=== PATIENT | male | born 1950 | race Hispanic/Latino ===

== ENCOUNTER → 2018-12-09 | Outpatient (CLI) | payer OTHER, MEDICARE ==
[~2018-12-09] MED LIST: AMLODIPINE BESYL5 MG PO; ASPIRIN325 MG PO; ATORVASTATIN CA20 MG PO; CARVEDILOL3.125 MG PO; FUROSEMIDE40 MG PO; HUMALOG SQ; HUMALOG100 UNIT/1 SQ; LANTUS 3ML100 UNITS/ SQ; LEVEMIR SQ; LISINOPRIL-HCT1 EAC2; LOVAZA1 GM PO; METFORMIN HCL1000 MG PO; TRULICITY SQ; VYTORIN
--- NOTE | 2018-12-09 14:46 | Diagnostic Imaging Report ---
TECHNIQUE: Magnetic resonance imaging of the LEFT KNEE was performed WITHOUT injected contrast. HISTORY: Left knee pain COMPARISON: None available. FINDINGS: LIGAMENTS AND TENDONS: ACL: Intact PCL: Intact Collateral ligaments: Defect within the medial collateral ligament axial image 20 with surrounding edema. (Additionally this could be remote injury with overlying edema due to the meniscal tear) Iliotibial band: Unremarkable Popliteal tendon: Intact Extensor mechanism: Fragmentation of the tibial tuberosity with patellar tendinosis JOINT: Menisci: Medial: Complex tearing of the body and posterior horn with dominant radial component of the body Lateral: Intact Articular Cartilage: Medial Compartment: Diffuse partial-thickness cartilage loss Lateral Compartment: Diffuse partial-thickness cartilage loss Patellofemoral Compartment: Diffuse high-grade cartilage loss with areas of the facet. Joint Fluid: Moderate joint effusion. BONE: No focal or infiltrative bone marrow replacing abnormality. No acute fracture. SOFT TISSUES: Otherwise, unremarkable. IMPRESSION: Medial meniscus complex tear with dominant radial component to the body. Tricompartment cartilage loss, patellofemoral compartment predominant. Medial collateral ligament possible partial tear as above. Signed by: Dr. Errol Dutta M.D. on 12/09/2018 2:43 PM
== END ==
LOC: MRI 13:07
PROVIDERS: ATTEND Specialist
DX: S83.222A Peripheral tear of medial meniscus, current injury, left knee, initial encounter (principal)

== ENCOUNTER → 2018-12-14 | Day surgery (SDC) | payer OTHER, MEDICARE ==
[2018-12-12 14:03] LABS: BASOPHILS # (AUTO) 0.1 (0.0-0.1); BASOPHILS % 0.6 % (0.0-1.0); EOSINOPHILS # (AUTO) 0.2 (0.0-0.4); EOSINOPHILS % 2.2 % (0.0-6.0); HEMATOCRIT 40.6 % (38.2-49.6); LYMPHOCYTES # (AUTO) 5.7 (1.0-3.2); LYMPHOCYTES % 53.2 % (18.0-39.1); MEAN CORPUSCULAR HEMOGLOBIN 28.7 pg (28-32); MEAN CORPUSCULAR VOLUME 89.6 fL (81-99); MONOCYTES # (AUTO) 0.7 (0.2-0.8); MONOCYTES % 6.9 % (4.4-11.3); NEUTROPHILS % 36.9 % (38.7-80.0); PLATELET COUNT 193 x10e3/uL (140-360); RED BLOOD COUNT 4.53 x10e6/uL (4.3-5.7); RED CELL DISTRIBUTION WIDTH 13.6 % (11.7-14.4)
--- NOTE | 2018-12-12 14:29 | Diagnostic Imaging Report ---
EXAMINATION: CHEST 2 VIEWS INDICATION: Pre-operative COMPARISON: None FINDINGS: LINES/TUBES:None LUNGS:The lungs are well inflated. No focal consolidation or pulmonary edema. PLEURA:No pleural effusion or pneumothorax. MEDIASTINUM:The cardiomediastinal silhouette is enlarged. Postoperative changes of prior CABG. Atherosclerotic calcifications of the thoracic aorta. BONES/SOFT TISSUES:No acute osseous injury. Sternotomy wires in place with fractures of the first and sixth sternotomy wires. ABDOMEN:No free air under the diaphragm. IMPRESSION: No focal pneumonia or pulmonary edema. Cardiomegaly and postoperative findings of prior CABG. Signed by: Akash Atwood MD on 12/12/2018 2:26 PM
[2018-12-12 14:31] LABS: ANION GAP 13.2 mmol/L (8-16); CALCIUM 9.5 mg/dL (8.4-10.2); CREATININE, SERUM 2.82 mg/dL (0.72-1.25); POTASSIUM 4.2 mmol/L (3.5-5.1)
[~2018-12-14] MED LIST changes: +ACETAMINOPHEN 1000 MG/100 ML 100 ML IV ONE; +BUPIVACAINE 0.5%/EPI 30 ML SDV INJ ONE; +CEFAZOLIN SOD 1 GM/NS 50ML 100 ML IV ONE; +DEXAMETHASONE SOD PHOS INJ 4 MG/ML VIAL ONE; +EPHEDRINE SULFATE INJ 50 MG/10 ML SYR ONE; +FENTANYL CITRATE/PF 100MCG/2 ML INJ ONE; +LIDOCAINE HCL 2% LOCAL INJ 5 ML SDV VIAL INJ ONE; +ONDANSETRON HCL INJ 2MG/ML 2ML 2 MG/ML VIAL ONE; +PROPOFOL IV EMULSION 10 MG/ML 20 ML VIAL ONE; +SEVOFLURANE INHAL SOLN 250 ML PEN BTL ONE
--- OUTSIDE RECORDS SUMMARY | 2018-12-14 08:31 | XMS REPORT | Summary of Care ---
Author Author [facility] Organization [facility] Address Unknown Phone Unavailable Encounter HQ Rocío(CARLOS) [id number] Date(s): 04/13/18 - 04/13/18 [facility] [address] [place] [address]- [phone] Encounter Diagnosis Epistaxis (Final) - 04/18/18 Type 2 diabetes mellitus without complications (Final) - Atherosclerotic heart disease of ute coronary artery without angina pectoris (Final) - half-way (current) use of anticoagulants (Final) - Presence of aortocoronary bypass graft (Final) - Personal history of nicotine dependence (Final) - Epistaxis (Discharge Diagnosis) - 04/13/18 Discharge Disposition: Home or Self Care Attending Physician: Lulu Castro DO Vital Signs 1 2 3 Most recent to oldest [Reference Range]: 177.8 cm (04/13/18 2:43 AM) Height 98.4 DegF (04/13/18 2:43 AM) Temperature Oral [96.4-99.1 DegF] 142/81 mmHg *HI* (04/13/18 5:32 AM) 138/85 mmHg (04/13/18 4:15 AM) 157/77 mmHg *HI* (04/13/18 2:43 AM) Blood Pressure [90-140/60-90 mmHg] 18 BRMIN (04/13/18 5:32 AM) 18 BRMIN (04/13/18 4:15 AM) 20 BRMIN (04/13/18 2:43 AM) Respiratory Rate [14-20 BRMIN] 77 bpm (04/13/18 2:43 AM) Peripheral Pulse Rate [60-100 bpm] 115.909 kg (04/13/18 2:43 AM) Weight 36.67 m2 (04/13/18 2:43 AM) Body Mass Index Problem List Condition Effective Dates Status Health Status Informant CAD (coronary artery Active disease)(Confirmed) Diabetes Active mellitus(Confirmed) Hypertension(Confirm Active ed) Obesity(Confirmed) Active Allergies, Adverse Reactions, Alerts No Known Medication Allergies Medications Afrin 0.05% nasal spray 2 spray, Route: NASAL, ONCE, Drug form: DEEDEE, Start date: 04/13/18 3:54:00 TRAILER CHIEF, Stop date: 04/13/18 3:54:00 TRAILER CHIEF Notes: (Same as: Afrin) Start Date: 04/13/18 Stop Date: 04/13/18 Status: Completed Results Most recent to 1 oldest [Reference Range]: Neutrophils # 4.8 K/CMM [1.5-8.1 K/CMM] (04/13/18 4:36 AM) Lymphocytes # 5.8 K/CMM [1.0-5.5 K/CMM] *HI* (04/13/18 4:36 AM) Monocytes # [0.0-0.8 0.8 K/CMM K/CMM] (04/13/18 4:36 AM) Eosinophils # 0.3 K/CMM [0.0-0.5 K/CMM] (04/13/18 4:36 AM) Basophils # [0.0-0.2 0.1 K/CMM K/CMM] (04/13/18 4:36 AM) Basophils [0.0-1.0 0.5 % %] (04/13/18 4:36 AM) Eosinophils [0.0-4.0 2.6 % %] (04/13/18 4:36 AM) Hct [42.0-54.0 %] 36.2 % *LOW* (04/13/18 4:36 AM) Hgb [14.0-18.0 g/dL] 12.0 g/dL *LOW* (04/13/18 4:36 AM) INR [0.85-1.17] 0.99 (04/13/18 4:36 AM) Lymphocytes 49.0 % [20.0-40.0 %] *HI* (04/13/18 4:36 AM) MCH [27.0-31.0 pg] 29.7 pg (04/13/18 4:36 AM) MCHC [32.0-36.0 33.2 g/dL g/dL] (04/13/18 4:36 AM) MCV [80.0-94.0 fL] 89.2 fL (04/13/18 4:36 AM) Monocytes [2.0-12.0 7.2 % %] (04/13/18 4:36 AM) MPV [7.4-10.4 fL] 10.0 fL (04/13/18 4:36 AM) Platelet [133-450 184 K/CMM K/CMM] (04/13/18 4:36 AM) Segs [45.0-75.0 %] 40.7 % *LOW* (04/13/18 4:36 AM) PT [12.0-14.7 12.9 seconds seconds] (04/13/18 4:36 AM) RBC [4.70-6.10 4.06 M/CMM M/CMM] *LOW* (04/13/18 4:36 AM) RDW [11.5-14.5 %] 13.7 % (04/13/18 4:36 AM) WBC [3.7-10.4 K/CMM] 11.8 K/CMM *HI* (04/13/18 4:36 AM) Immunizations No data available for this section Procedures Procedure Date Related Diagnosis Body Site Status CABG x 4 - Coronary artery bypass grafts x 4 03/2016 Completed Arthroscopy of knee Completed Cholecystectomy Completed Epidural steroid injection Completed Tonsillectomy Completed Social History Social History Type Response Substance Abuse Use: None. Alcohol Current, Frequency: 1-2 times per year. Smoking Status Former smoker; Exposure to Tobacco Smoke None; Cigarette Smoking Last 365 Days No; Reg Smoking Cessation Counseling No entered on: 05/13/18 Assessment and Plan No data available for this section
--- OUTSIDE RECORDS SUMMARY | 2018-12-14 08:31 | XMS REPORT | Summary of Care ---
Author Organization Unknown Address Unknown Phone Unavailable Encounter Dates Location Diagnoses Discharge Providers Disposition 06/08/2013 [facility] Outpatient Imaging Home Salvador Cagle 06/08/[address] [place] [place] [address] Reason for Visit 669.46 - JOINT PAIN-L/LE Problem List No data available for this section Allergies, Adverse Reactions, Alerts No data available for this section Medications No data available for this section Medications Administered During Your Visit No data available for this section Immunizations No data available for this section
--- OUTSIDE RECORDS SUMMARY | 2018-12-14 08:31 | XMS REPORT | Summary of Care ---
Author Organization Unknown Address Unknown Phone Unavailable Encounter HQ Encntr_alias(CARLOS) [id number] Date(s): 07/16/14 - 07/16/14 [facility] Outpatient Imaging - [address] [phone] Discharge Disposition: Home Physician Attending: Salvatore Inman MD Vital Signs No data available for this section Problem List No data available for this section Allergies, Adverse Reactions, Alerts No data available for this section Medications No data available for this section Results No data available for this section Immunizations No data available for this section Procedures No data available for this section Social History No data available for this section Assessment and Plan No data available for this section
--- OUTSIDE RECORDS SUMMARY | 2018-12-14 08:31 | XMS REPORT | Clinical Summary ---
Author Author [facility] Address Unknown Phone Unavailable Care Team Providers Care Health Care Consultant Name Role Phone Salvatore Inman MD PCP Allergies Comments Active Allergy Reactions Severity Noted Date Zolpidem 03/30/2016 Medications End Date Status Medication Sig Dispensed Refills Start Date Active amLODIPine (NORVASC) 10 Take 5 mg by 0 mg tablet mouth daily. Active aspirin (ECOTRIN) 81 MG Take 81 mg by 0 enteric coated tablet mouth daily. Active insulin GLARGINE (LANTUS) Inject 38 0 100 unit/mL injection Units under (vial) the skin nightly. Active insulin ASPART (NovoLOG) Inject 12 0 100 unit/mL injection Units under the skin 3 (three) times a day before meals. Active omega-3 acid ethyl esters Take 2 g by 0 (LOVAZA) 1 gram capsule mouth 2 (two) times a day. Active Problems Problem Noted Date Acute on chronic congestive heart failure 06/27/2017 Essential hypertension 06/27/2017 Type 2 diabetes mellitus 06/27/2017 Metabolic alkalosis 04/24/2016 Hypercarbia 04/24/2016 Ischemic cardiomyopathy 04/24/2016 Acute deep vein thrombosis (DVT) of popliteal vein of left lower extremity 04/24/2016 Persistent atrial fibrillation 04/20/2016 Acute on chronic renal failure 04/09/2016 Anemia due to blood loss 04/08/2016 S/P CABG x 4 (HYATT TO LAD, SVG TO OM, DIAGONAL AND RCA) 04/07/2016 Acute respiratory insufficiency 04/07/2016 Obstructive sleep apnea 04/07/2016 Obesity (BMI 35.0-39.9 without comorbidity) 04/07/2016 Congestive heart failure 03/30/2016 Immunizations Name Administration Dates Next Due Pneumococcal Conjugate 04/01/2016 13-Valent Social History Date Tobacco Use Types Packs/Day Years Used Quit: 1999 Former Smoker Smokeless Tobacco: Never Used Sex Assigned at Date Recorded Not on file Industry Job Start Date Occupation Not on file Not on file Not on file Travel End Travel History Travel Start No recent travel history available. Last Filed Vital Signs Not on file Plan of Treatment Health Maintenance Due Date Last Done Comments DIABETIC RETINAL EYE EXAM 1948 DIABETIC FOOT EXAM 1958 COLONOSCOPY SCREENING 1998 SHINGLES VACCINES (#1) 1998 65+ PNEUMOCOCCAL VACCINE 04/01/2017 04/01/2016 (2 of 2 - PPSV23) INFLUENZA VACCINE 10/20/2018 Implants Device Identifier Shelf Expiration Date Model / Serial / Lot Implanted Type Area Manufactur er [id number] / / Lead Pace Glenn Mycrdl Unipol Tmpry Cardiovasc N/A: N/A [employer] Streamline - [id number] ular [place] - Implanted: 04/07/2016 at [facility] (Quantity not on file) SRGRY 6500F / / Lead Pace Glenn Mycrdl Unipol Tmpry Cardiovasc N/A: N/A [employer] Streamline - [id number] ular [place] - Implanted: 04/07/2016 at [facility] (Quantity not on file) SRGRY S 1100 [id number] / / Chamber Sgl Layla Dry Suct 1wy Vlv Surgical N/A: N/A TELEFLEX Adlt Pedi - [id number] Implants; MEDICAL Implanted: 04/07/2016 at [facility] (Quantity not on file) Extenders; Surgical Wires S 1100 [id number] / / Chamber Sgl Layla Dry Suct 1wy Vlv Surgical N/A: N/A TELEFLEX Adlt Pedi - [id number] Implants; MEDICAL Implanted: 04/07/2016 at [facility] (Quantity not on file) Extenders; Surgical Wires 10/16/2020 [id number] / / [id number] [place] Perp Vasclr Ptfe 1.2x10cm Vascular N/A: N/A BARD 1.65mm - [id number] Graft PERIPHERAL Implanted: 04/07/2016 at [facility] (Quantity not on file) 12/17/2020 [id number] / / [id number] [place] Perp Vasclr Ptfe 1.2x10cm Vascular N/A: N/A BARD 1.65mm - [id number] Graft PERIPHERAL Implanted: 04/07/2016 at [facility] (Quantity not on file) Results Not on fileafter 12/13/2017 Insurance Type Payer Benefit Subscriber ID Effective Phone Address Plan / Dates Group PPO AETNA AETNA PPO xxxxxxxxxx [id number] OPEN resent CHOICE Medicare MEDICARE MEDICARE xxxxxxxxxx [id number] LERNER, PART A AND resent [place] B Advance Directives For more information, please contact: [phone] 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
--- OUTSIDE RECORDS SUMMARY | 2018-12-14 08:31 | XMS REPORT | Summary of Care ---
Author Author [facility] Outpatient Imaging [facility] Outpatient Imaging [facility] Address Unknown Phone Unavailable Encounter HQ Encntr_alias(FIN) [id number] Date(s): 05/10/18 - 05/10/18 [facility] Outpatient Imaging [facility] [address] [facility], [address] [place] [address] [phone] Discharge Disposition: Home or Self Care Attending Physician: Leland Patino MD Referring Physician: Leland Patino MD Vital Signs No data available for this section Problem List No data available for this section Allergies, Adverse Reactions, Alerts Substance Reaction Severity Status NKDA Active Medications No data available for this section Results No data available for this section Immunizations No data available for this section Procedures No data available for this section Social History Social History Type Response Smoking Status Former smoker; Type: Cigarettes; Exposure to Tobacco Smoke None; Cigarette Smoking Last 365 Days No; Reg Smoking Cessation Counseling No entered on: 04/13/18 Assessment and Plan No data available for this section
--- OUTSIDE RECORDS SUMMARY | 2018-12-14 08:31 | XMS REPORT | Summary of Care ---
Author Author [facility] Outpatient Imaging [facility] Outpatient [facility] Address Unknown Phone Unavailable Encounter HQ Encntr_alias(FIN) [id number] Date(s): 02/18/16 - 02/18/16 [facility] Outpatient Imaging [address] [address] [phone] Discharge Disposition: Home or Self Care Attending Physician: Salvatore Inman MD Vital Signs No data [...]
--- OUTSIDE RECORDS SUMMARY | 2018-12-14 08:31 | XMS REPORT | Summary of Care ---
Author Author [facility] Organization [facility] Address Unknown Phone Unavailable Encounter HIEU Alford(CARLOS) [id number] Date(s): 05/16/18 - 05/16/18 [facility] [address] [place] [address]- Discharge Disposition: Home or Self Care Attending Physician: Leland Patino MD Referring Physician: Leland Patino MD Vital Signs 1 2 3 Most recent to oldest [Reference Range]: 177.8 cm (05/13/18 9:46 AM) Height 98.0 DegF (05/13/18 9:57 AM) Temperature Oral [96.4-99.1 DegF] 133/78 mmHg (05/16/18 11:15 AM) 139/64 mmHg (05/16/18 11:00 AM) 133/69 mmHg (05/16/18 10:45 AM) Blood Pressure [90-140/60-90 mmHg] 16 BRMIN (05/16/18 10:45 AM) 17 BRMIN (05/16/18 10:30 AM) 14 BRMIN (05/16/18 10:15 AM) Respiratory Rate [14-20 BRMIN] 79 bpm (05/16/18 8:30 AM) 64 bpm (05/13/18 9:57 AM) Peripheral Pulse Rate [60-100 bpm] 115.909 kg (05/13/18 9:46 AM) Weight 36.67 m2 (05/13/18 9:46 AM) Body Mass Index Problem List Condition Effective Dates Status Health Status Informant CAD (coronary artery Active disease)(Confirmed) Diabetes Active mellitus(Confirmed) Hypertension(Confirm Active ed) Obesity(Confirmed) Active Allergies, Adverse Reactions, Alerts Substance Reaction Severity Status NKDA Active Medications acetaminophen (ANES) Route: IV, Drug form: INJ, ONCE, Stop date: 05/16/18 10:04:00 SUPPORT MANAGER Start Date: 05/16/18 Stop Date: 05/16/18 Status: Completed amLODIPine 5 mg oral tablet 5 mg=1 tab, PO, Daily, 0 Refill(s) Start Date: 05/13/18 Status: Ordered ANES acetaminophen 1,000 mg, Route: PO, Drug form: TAB, ONCE, Dosing Weight 115.909, kg, PRN Pain S core 1-3, Start date: 05/16/18 10:08:00 SUPPORT MANAGER Start Date: 05/16/18 Stop Date: 05/16/18 Status: Discontinued ANES albuterol 0.083% inhalation solution 2.49 mg, Route: NEB, Q20Min, Dosing Weight 115.909, kg, PRN Wheezing, Priority: STAT, Start date: 05/16/18 10:08:00 SUPPORT MANAGER, Duration: 30 day, Stop date: 06/15/18 1 1:07:00 CDT Start Date: 05/16/18 Stop Date: 05/16/18 Status: Discontinued ANES dexamethasone 4 mg, Route: IVP, ONCE, Dosing Weight 115.909, kg, PRN Nausea & Vomiting, Start date: 05/16/18 10:08:00 SUPPORT MANAGER Start Date: 05/16/18 Stop Date: 05/16/18 Status: Discontinued ANES diphenhydrAMINE 12.5 mg, Route: IVP, Drug form: INJ, Q6H, Dosing Weight 115.909, kg, PRN Itching , Start date: 05/16/18 10:08:00 SUPPORT MANAGER, Duration: 30 day, Stop date: 06/15/18 10:07 :00 CDT Start Date: 05/16/18 Stop Date: 05/16/18 Status: Discontinued ANES fentaNYL 25 microgram, Route: IVP, Q5Min, Dosing Weight 115.909, kg, PRN, Priority: Melanie thomas, Start date: 05/16/18 10:08:00 SUPPORT MANAGER, Duration: 4 doses or times, Stop date: Eve ross # of times, Pain Score 4-10 Start Date: 05/16/18 Stop Date: 05/16/18 Status: Discontinued ANES flumazenil 0.2 mg, Route: IVP, PRN, Dosing Weight 115.909, kg, PRN Benzodiazepine Reversal, Initial dose, Start date: 05/16/18 10:08:00 SUPPORT MANAGER, Duration: 30 day, Stop date: 0 06/15/18 11:07:00 CDT Start Date: 05/16/18 Stop Date: 05/16/18 Status: Discontinued ANES hydrALAZINE 5 mg, Route: IVP, Q20Min, Dosing Weight 115.909, kg, PRN Elevated BP, Start date : 05/16/18 10:08:00 SUPPORT MANAGER, Duration: 2 doses or times, Stop date: Limited # of hermes es Start Date: 05/16/18 Stop Date: 05/16/18 Status: Discontinued ANES HYDROmorphone 0.5 mg, Route: IVP, Q5Min, Dosing Weight 115.909, kg, PRN, Start date: 05/16/18 10:08:00 SUPPORT MANAGER, Duration: 4 doses or times, Stop date: Limited # of times, Pain Sc ore 4-10 Start Date: 05/16/18 Stop Date: 05/16/18 Status: Discontinued ANES labetalol 5 mg, Route: IVP, Q5Min, Dosing Weight 115.909, kg, PRN Elevated BP, Start date: 05/16/18 10:08:00 SUPPORT MANAGER, Duration: 5 doses or times, Stop date: Limited # of times Start Date: 05/16/18 Stop Date: 05/16/18 Status: Discontinued ANES metoprolol 1 mg, Route: IVP, Q5Min, Dosing Weight 115.909, kg, PRN Other -See Comment, Star t date: 05/16/18 10:08:00 SUPPORT MANAGER, Duration: 5 doses or times, Stop date: Limited # of times Start Date: 05/16/18 Stop Date: 05/16/18 Status: Discontinued ANES naloxone 0.4 mg, Route: IVP, Q2MIN, Dosing Weight 115.909, kg, PRN Narcotic Reversal, Sta rt date: 05/16/18 10:08:00 SUPPORT MANAGER, Duration: 8 doses or times, Stop date: Limited # of times Start Date: 05/16/18 Stop Date: 05/16/18 Status: Discontinued ANES ondansetron 4 mg, Route: IVP, ONCE, Dosing Weight 115.909, kg, PRN Nausea & Vomiting, Start date: 05/16/18 10:08:00 SUPPORT MANAGER Start Date: 05/16/18 Stop Date: 05/16/18 Status: Discontinued ANES promethazine 6.25 mg, Route: IVPB, ONCE, Dosing Weight 115.909, kg, PRN Nausea & Vomiting, Start date: 05/16/18 10:08:00 SUPPORT MANAGER Start Date: 05/16/18 Stop Date: 05/16/18 Status: Discontinued ANES scopolamine 1.5 mg transdermal film 1 patch, Route: TOP, Drug Form: ERFILM, Dosing Weight 115.909, kg, ONCE, Apply b ehind ear. Avoid use in elderly., Start date: 05/16/18 10:08:00 SUPPORT MANAGER, Stop date: 05/16/18 10:08:00 SUPPORT MANAGER Notes: Change patch every 72 hours (Same as: Transderm-Scop) Start Date: 05/16/18 Stop Date: 05/16/18 Status: Ordered aspirin 81 mg tablet, enteric coated 81 mg=1 tab, PO, Daily, # 90 tab, 3 Refill(s) Start Date: 05/13/18 Status: Ordered atorvastatin PO, Daily, 0 Refill(s) Start Date: 05/13/18 Status: Ordered Basaglar KwikPen SUB-Q, 0 Refill(s) Start Date: 05/13/18 Status: Ordered carvedilol 3.125 mg oral tablet 3.125 mg=1 tab, PO, BID, 0 Refill(s) Start Date: 05/13/18 Status: Ordered ceFAZolin (ANES) Route: IV, Drug form: INJ, ONCE, Stop date: 05/16/18 10:03:00 SUPPORT MANAGER Start Date: 05/16/18 Stop Date: 05/16/18 Status: Completed dexamethasone (ANES) Route: IV, Drug form: INJ, ONCE, Stop date: 05/16/18 10:04:00 SUPPORT MANAGER Start Date: 05/16/18 Stop Date: 05/16/18 Status: Completed ePHEDrine (ANES) Route: IV, Drug form: INJ, ONCE, Stop date: 05/16/18 10:03:00 SUPPORT MANAGER Start Date: 05/16/18 Stop Date: 05/16/18 Status: Completed esmolol (ANES) Route: IV, Drug form: INJ, ONCE, Stop date: 05/16/18 10:04:00 SUPPORT MANAGER Start Date: 05/16/18 Stop Date: 05/16/18 Status: Completed fentaNYL (ANES) Route: IV, Drug form: INJ, ONCE, Stop date: 05/16/18 10:03:00 SUPPORT MANAGER Start Date: 05/16/18 Stop Date: 05/16/18 Status: Completed glycopyrrolate (ANES) Route: IV, Drug form: INJ, ONCE, Stop date: 05/16/18 10:04:00 SUPPORT MANAGER Start Date: 05/16/18 Stop Date: 05/16/18 Status: Completed Humalog 18 unit, SUB-Q, 0 Refill(s) Start Date: 05/13/18 Status: Ordered Lactated Ringers Injection IV (ANES) 1000 mL Route: IV, Total Volume: 1,000, Start date: 05/16/18 9:07:00 SUPPORT MANAGER, Stop date: 10:07:00 SUPPORT MANAGER Start Date: 05/16/18 Stop Date: 05/16/18 Status: Completed Lactated Ringers Injection IV 1000 mL 1,000 mL, Rate: 125 ml/hr, Infuse over: 8 hr, Route: IV, Dosing Weight 115.909 k g, Total Volume: 1,000, Start date: 05/16/18 10:08:00 SUPPORT MANAGER, Duration: 30 day, Sto p date: 06/15/18 10:07:00 CDT, 2.42, m2 Start Date: 05/16/18 Stop Date: 05/16/18 Status: Discontinued Lactated Ringers Injection IV 1000 mL 1,000 mL, Rate: 25 ml/hr, Infuse over: 40 hr, Route: IV, Dosing Weight 115.909 k g, Total Volume: 1,000, Start date: 05/16/18 9:16:00 SUPPORT MANAGER, Duration: 30 day, Stop date: 06/15/18 9:15:00 CDT, 2.42, m2 Start Date: 05/16/18 Stop Date: 05/16/18 Status: Discontinued Lasix 40 mg oral tablet 40 mg=1 tab, PO, Daily, 0 Refill(s) Start Date: 05/13/18 Status: Ordered lidocaine (ANES) Route: IV, Drug form: INJ, ONCE, Stop date: 05/16/18 10:03:00 SUPPORT MANAGER Start Date: 05/16/18 Stop Date: 05/16/18 Status: Completed neostigmine (ANES) Route: IV, Drug form: INJ, ONCE, Stop date: 05/16/18 10:04:00 SUPPORT MANAGER Start Date: 05/16/18 Stop Date: 05/16/18 Status: Completed [place]-3 oral capsule 0 Refill(s) Start Date: 05/13/18 Status: Ordered ondansetron (ANES) Route: IV, Drug form: INJ, ONCE, Stop date: 05/16/18 10:04:00 SUPPORT MANAGER Start Date: 05/16/18 Stop Date: 05/16/18 Status: Completed oxyCODONE 5 mg oral tablet 5 mg, 1 tab, Route: PO, Q6H, Dosing Weight 115.909, kg, Start date: 05/16/18 10: 56:00 SUPPORT MANAGER, Duration: 30 day, Stop date: 06/15/18 6:00:00 CDT Start Date: 05/16/18 Stop Date: 05/16/18 Status: Discontinued phenylephrine (ANES) Route: IV, Drug form: INJ, ONCE, Stop date: 05/16/18 10:03:00 SUPPORT MANAGER Start Date: 05/16/18 Stop Date: 05/16/18 Status: Completed propofol (ANES) Route: IV, Drug form: INJ, ONCE, Stop date: 05/16/18 10:03:00 SUPPORT MANAGER Start Date: 05/16/18 Stop Date: 05/16/18 Status: Completed rocuronium (ANES) Route: IV, Drug form: INJ, ONCE, Stop date: 05/16/18 10:03:00 SUPPORT MANAGER Start Date: 05/16/18 Stop Date: 05/16/18 Status: Completed Sodium Chloride 0.9% IV 1000 mL 1,000 mL, Rate: 25 ml/hr, Infuse over: 40 hr, Route: IV, Dosing Weight 115.909 k g, Total Volume: 1,000, Start date: 05/16/18 9:16:00 SUPPORT MANAGER, Duration: 30 day, Stop date: 06/15/18 9:15:00 CDT, 2.42, m2 Start Date: 05/16/18 Stop Date: 05/16/18 Status: Discontinued Results ELECTROLYTES Most recent to 1 oldest [Reference Range]: Sodium Lvl [135-145 141 mEq/L mEq/L] (05/13/18 10:42 AM) Potassium Lvl 4.0 mEq/L [3.5-5.1 mEq/L] (05/13/18 10:42 AM) Chloride Lvl [95-109 104 mEq/L mEq/L] (05/13/18 10:42 AM) CO2 [24-32 mEq/L] 26 mEq/L (05/13/18 10:42 AM) AGAP [10.0-20.0 15.0 mEq/L mEq/L] (05/13/18 10:42 AM) CHEM PANEL Most recent to 1 oldest [Reference Range]: Creatinine Lvl 2.52 mg/dL [0.50-1.40 mg/dL] *HI* (05/13/18 10:42 AM) eGFR 25 mL/min/1.73m2 1 *NA* (05/13/18 10:42 AM) BUN [7-22 mg/dL] 33 mg/dL *HI* (05/13/18 10:42 AM) Glucose Lvl [70-99 213 mg/dL mg/dL] *HI* (05/13/18 10:42 AM) Calcium Lvl 8.6 mg/dL [8.5-10.5 mg/dL] (05/13/18 10:42 AM) 1Result Comment: The eGFR is calculated using the CKD-EPI formula. In most young, healthy individuals the eGFR will be >90 mL/min/1.73m2. The eGFR declines with age. An eGFR of 60-89 may be normal in some populations, particularly the elderly, for whom the CKD-EPI formula has not been extensively validated. Use of the eGFR is not recommended in the following populations: Individuals with unstable creatinine concentrations, including patients and those with serious co-morbid conditions. Patients with extremes in muscle mass or diet. The data above are obtained from the National Kid[employer] Disease Education Program ( NKDEP) which additionally recommends that when the eGFR is used in patients with extremes of body mass index for purposes of drug dosing, the eGFR should be mul tiplied by the estimated BMI. SPECIAL CHEMISTRY Most recent to 1 oldest [Reference Range]: Hgb A1C [<=5.6 %] 9.1 % *HI* (05/13/18 10:42 AM) HEMATOLOGY Most recent to 1 oldest [Reference Range]: Hgb [14.0-18.0 g/dL] 11.8 g/dL *LOW* (05/13/18 10:42 AM) Hct [42.0-54.0 %] 36.6 % *LOW* (05/13/18 10:42 AM) Immunizations No data available for this [...]
--- OUTSIDE RECORDS SUMMARY | 2018-12-14 08:31 | XMS REPORT | Summary of Care ---
Author Organization Unknown Address Unknown Phone Unavailable Encounter [facility] Encntr_alias(CARLOS) [id number] Date(s): 07/16/14 - 07/16/14 [facility] [address] [place] [address]- Discharge Disposition: Home Physician Attending: Salvatore Inman MD Physician_Referring: Salvatore Inman MD Vital Signs No data [...]
--- OUTSIDE RECORDS SUMMARY | 2018-12-14 08:31 | XMS REPORT | Continuity of Care Document ---
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 Name Role Phone [employer] Unavailable Unavailable Problems Problem Status Onset Date Classification Date Reported Comments Source UNK Active 05/12/2018 [facility] R04.0 - EPISTAXIS Active 05/05/2018 [facility] [place] Epistaxis 04/19/2018 10/31/2018 [facility] NOSE BLEED Active 04/13/2018 [facility] NOSEBLEED Active 01/10/2018 [facility] R10.84 - GENERALIZED ABDOMINAL PAIN Active 02/18/2016 [facility] UPPER ABDOMINAL PAIN Active 07/16/2014 [facility] 789.0 - ABDOMINAL PAIN Active 07/13/2014 [facility] [place], [facility] [place] 719.46 - JOINT PAIN-L/LE Active 06/07/2013 [facility] [place] 836.0 - TEAR MED MENISC Active 04/21/2012 [facility] [place] Coronary arteriosclerosis (disorder) Active Problem 10/31/2018 [facility] Diabetes mellitus (disorder) Active Problem 10/31/2018 [facility] Hypertensive disorder, systemic arterial (disorder) Active Problem 10/31/2018 [facility] Obesity (disorder) Active Problem 10/31/2018 [facility] Type 2 diabetes mellitus without complications 10/31/2018 [facility] Atherosclerotic heart disease of teller coronary artery without angina pectoris 10/31/2018 [facility] assisted (current) use of anticoagulants 10/31/2018 [facility] Presence of aortocoronary bypass graft 10/31/2018 [facility] Personal history of nicotine dependence 10/31/2018 [facility] Medications Medication Details Route Status Patient Instructions Ordering Provider Order Date Source Oxycodone Hydrochloride 5 MG Oral Tablet 5 mg, 1 tab, Route: PO, Q6H, Dosing Weight 115.909, kg, Start date: 05/16/18 10:56:00 CHRONOMETER REPAIRER, Duration: 30 day, Stop date: 06/15/18 6:00:00 CDT Inactive 05/16/2018 [facility] Acetaminophen 1,000 mg, Route: PO, Drug form: TAB, ONCE, Dosing Weight 115.909, kg, PRN Pain Score 1-3, Start date: 05/16/18 10:08:00 CHRONOMETER REPAIRER Inactive 05/16/2018 [facility] Flumazenil 0.2 mg, Route: IVP, PRN, Dosing Weight 115.909, kg, PRN Benzodiazepine Reversal, Initial dose, Start date: 05/16/18 10:08:00 CHRONOMETER REPAIRER, Duration: 30 day, Stop date: 06/15/18 11:07:00 CDT Inactive 05/16/2018 [facility] Fentanyl 25 microgram, Route: IVP, Q5Min, Dosing Weight 115.909, kg, PRN, Priority: Routine, Start date: 05/16/18 10:08:00 CHRONOMETER REPAIRER, Duration: 4 doses or times, Stop date: Limited # of times, Pain Score 4-10 Inactive 05/16/2018 [facility] Hydromorphone 0.5 mg, Route: IVP, Q5Min, Dosing Weight 115.909, kg, PRN, Start date: 05/16/18 10:08:00 CHRONOMETER REPAIRER, Duration: 4 doses or times, Stop date: Limited # of times, Pain Score 4-10 Inactive 05/16/2018 [facility] Dexamethasone 4 mg, Route: IVP, ONCE, Dosing Weight 115.909, kg, PRN Nausea & Vomiting, Start date: 05/16/18 10:08:00 CHRONOMETER REPAIRER Inactive 05/16/2018 [facility] Promethazine 6.25 mg, Route: IVPB, ONCE, Dosing Weight 115.909, kg, PRN Nausea & Vomiting, Start date: 05/16/18 10:08:00 CHRONOMETER REPAIRER Inactive 05/16/2018 [facility] Ondansetron 4 mg, Route: IVP, ONCE, Dosing Weight 115.909, kg, PRN Nausea & Vomiting, Start date: 05/16/18 10:08:00 CHRONOMETER REPAIRER Inactive 05/16/2018 [facility] Diphenhydramine 12.5 mg, Route: IVP, Drug form: INJ, Q6H, Dosing Weight 115.909, kg, PRN Itching, Start date: 05/16/18 10:08:00 CHRONOMETER REPAIRER, Duration: 30 day, Stop date: 06/15/18 10:07:00 CDT Inactive 05/16/2018 [facility] 72 HR Scopolamine 0.0139 MG/HR Transdermal Patch 1 patch, Route: TOP, Drug Form: ERFILM, Dosing Weight 115.909, kg, ONCE, Apply behind ear. Avoid use in elderly., Start date: 05/16/18 10:08:00 CHRONOMETER REPAIRER, Stop date: 05/16/18 10:08:00 CSTNotes: Change patch every 72 hours (Same as: Transderm-Scop) Inactive 05/16/2018 [facility] Albuterol 0.83 MG/ML Inhalant Solution 2.49 mg, Route: NEB, Q20Min, Dosing Weight 115.909, kg, PRN Wheezing, Priority: STAT, Start date: 05/16/18 10:08:00 CHRONOMETER REPAIRER, Duration: 30 day, Stop date: 06/15/18 11:07:00 CDT Inactive 05/16/2018 [facility] Naloxone 0.4 mg, Route: IVP, Q2MIN, Dosing Weight 115.909, kg, PRN Narcotic Reversal, Start date: 05/16/18 10:08:00 CHRONOMETER REPAIRER, Duration: 8 doses or times, Stop date: Limited # of times Inactive 05/16/2018 [facility] Calcium Chloride 0.0014 MEQ/ML / Potassium Chloride 0.004 MEQ/ML / Sodium Chloride 0.103 MEQ/ML / Sodium Lactate 0.028 MEQ/ML Injectable Solution 1,000 mL, Rate: 125 ml/hr, Infuse over: 8 hr, Route: IV, Dosing Weight 115.909 kg, Total Volume: 1,000, Start date: 05/16/18 10:08:00 CHRONOMETER REPAIRER, Duration: 30 day, Stop date: 06/15/18 10:07:00 CDT, 2.42, m2 Inactive 05/16/2018 [facility] Hydralazine 5 mg, Route: IVP, Q20Min, Dosing Weight 115.909, kg, PRN Elevated BP, Start date: 05/16/18 10:08:00 CHRONOMETER REPAIRER, Duration: 2 doses or times, Stop date: Limited # of times Inactive 05/16/2018 [facility] Labetalol 5 mg, Route: IVP, Q5Min, Dosing Weight 115.909, kg, PRN Elevated BP, Start date: 05/16/18 10:08:00 CHRONOMETER REPAIRER, Duration: 5 doses or times, Stop date: Limited # of times Inactive 05/16/2018 [facility] Metoprolol 1 mg, Route: IVP, Q5Min, Dosing Weight 115.909, kg, PRN Other -See Comment, Start date: 05/16/18 10:08:00 CHRONOMETER REPAIRER, Duration: 5 doses or times, Stop date: Limited # of times Inactive 05/16/2018 [facility] ondansetron (ANES) Route: IV, Drug form: INJ, ONCE, Stop date: 05/16/18 10:04:00 CHRONOMETER REPAIRER Inactive 05/16/2018 [facility] dexamethasone (ANES) Route: IV, Drug form: INJ, ONCE, Stop date: 05/16/18 10:04:00 CHRONOMETER REPAIRER Inactive 05/16/2018 [facility] esmolol (ANES) Route: IV, Drug form: INJ, ONCE, Stop date: 05/16/18 10:04:00 CHRONOMETER REPAIRER Inactive 05/16/2018 [facility] acetaminophen (ANES) Route: IV, Drug form: INJ, ONCE, Stop date: 05/16/18 10:04:00 CHRONOMETER REPAIRER Inactive 05/16/2018 [facility] neostigmine (ANES) Route: IV, Drug form: INJ, ONCE, Stop date: 05/16/18 10:04:00 CHRONOMETER REPAIRER Inactive 05/16/2018 [facility] glycopyrrolate (ANES) Route: IV, Drug form: INJ, ONCE, Stop date: 05/16/18 10:04:00 CHRONOMETER REPAIRER Inactive 05/16/2018 [facility] ePHEDrine (ANES) Route: IV, Drug form: INJ, ONCE, Stop date: 05/16/18 10:03:00 CHRONOMETER REPAIRER Inactive 05/16/2018 [facility] ceFAZolin (ANES) Route: IV, Drug form: INJ, ONCE, Stop date: 05/16/18 10:03:00 CHRONOMETER REPAIRER Inactive 05/16/2018 [facility] rocuronium (ANES) Route: IV, Drug form: INJ, ONCE, Stop date: 05/16/18 10:03:00 CHRONOMETER REPAIRER Inactive 05/16/2018 [facility] propofol (ANES) Route: IV, Drug form: INJ, ONCE, Stop date: 05/16/18 10:03:00 CHRONOMETER REPAIRER Inactive 05/16/2018 [facility] fentaNYL (ANES) Route: IV, Drug form: INJ, ONCE, Stop date: 05/16/18 10:03:00 CHRONOMETER REPAIRER Inactive 05/16/2018 [facility] lidocaine (ANES) Route: IV, Drug form: INJ, ONCE, Stop date: 05/16/18 10:03:00 CHRONOMETER REPAIRER Inactive 05/16/2018 [facility] phenylephrine (ANES) Route: IV, Drug form: INJ, ONCE, Stop date: 05/16/18 10:03:00 CHRONOMETER REPAIRER Inactive 05/16/2018 [facility] Sodium Chloride 0.9% IV 1000 mL 1,000 mL, Rate: 25 ml/hr, Infuse over: 40 hr, Route: IV, Dosing Weight 115.909 kg, Total Volume: 1,000, Start date: 05/16/18 9:16:00 CHRONOMETER REPAIRER, Duration: 30 day, Stop date: 06/15/18 9:15:00 CDT, 2.42, m2 Inactive 05/16/2018 [facility] Calcium Chloride 0.0014 MEQ/ML / Potassium Chloride 0.004 MEQ/ML / Sodium Chloride 0.103 MEQ/ML / Sodium Lactate 0.028 MEQ/ML Injectable Solution 1,000 mL, Rate: 25 ml/hr, Infuse over: 40 hr, Route: IV, Dosing Weight 115.909 kg, Total Volume: 1,000, Start date: 05/16/18 9:16:00 CHRONOMETER REPAIRER, Duration: 30 day, Stop date: 06/15/18 9:15:00 CDT, 2.42, m2 Inactive 05/16/2018 [facility] Lactated Ringers Injection IV (ANES) 1000 mL Route: IV, Total Volume: 1,000, Start date: 05/16/18 9:07:00 CHRONOMETER REPAIRER, Stop date: 05/16/18 10:07:00 CHRONOMETER REPAIRER Inactive 05/16/2018 [facility] Edgewood-3 oral capsule 0 Refill(s) Active 05/13/2018 [facility] Humalog 18 unit, SUB-Q, 0 Refill(s) Active 05/13/2018 [facility] Basaglar KwikPen SUB-Q, 0 Refill(s) Active 05/13/2018 [facility] atorvastatin PO, Daily, 0 Refill(s) Active 05/13/2018 [facility] Furosemide 40 MG Oral Tablet [Lasix] 40 mg=1 tab, PO, Daily, 0 Refill(s) Active 05/13/2018 [facility] carvedilol 3.125 mg oral tablet 3.125 mg=1 tab, PO, BID, 0 Refill(s) Active 05/13/2018 [facility] Aspirin 81 MG Enteric Coated Tablet 81 mg=1 tab, PO, Daily, # 90 tab, 3 Refill(s) Active 05/13/2018 [facility] amLODIPine 5 mg oral tablet 5 mg=1 tab, PO, Daily, 0 Refill(s) Active 05/13/2018 [facility] Oxymetazoline hydrochloride 0.5 MG/ML Nasal [place] [Afrin] 2 spray, Route: NASAL, ONCE, Drug form: SPRY, Start date: 04/13/18 3:54:00 CHRONOMETER REPAIRER, Stop date: 04/13/18 3:54:00 CSTNotes: (Same as: Afrin) Inactive 04/13/2018 [facility] Allergies, Adverse Reactions, Alerts Substance Category Reaction Severity Reaction type Status Date Reported Comments Source No Known Medication Allergies Assertion Drug allergy [facility] Immunizations No Data Provided for This Section Results Order Name Results Value Reference Range Date Interpretation Comments Source CHEM PANEL eGFR 25 05/13/2018 Result Comment: The eGFR is calculated using the [...] from the National Kidney Disease Education Program (NKDEP) which additionally recommends that when the eGFR is used in patients with extremes of body mass index for purposes of drug dosing, the eGFR should be multiplied by the estimated BMI. [facility] CHEM PANEL Glucose Lvl 213 70 - 99 05/13/2018 [facility] CHEM PANEL Creatinine Lvl 2.52 0.50 - 1.40 05/13/2018 [facility] CHEM PANEL Calcium Lvl 8.6 8.5 - 10.5 05/13/2018 [facility] CHEM PANEL Sodium Lvl 141 135 - 145 05/13/2018 [facility] CHEM PANEL Potassium Lvl 4.0 3.5 - 5.1 05/13/2018 [facility] CHEM PANEL BUN 33 7 - 22 05/13/2018 [facility] CHEM PANEL Chloride Lvl 104 95 - 109 05/13/2018 [facility] CHEM PANEL CO2 26 24 - 32 05/13/2018 [facility] CHEM PANEL AGAP 15.0 10.0 - 20.0 05/13/2018 [facility] HEMATOLOGY Hct 36.6 42.0 - 54.0 05/13/2018 [facility] HEMATOLOGY Hgb 11.8 14.0 - 18.0 05/13/2018 [facility] SPECIAL CHEMISTRY Hgb A1C 9.1 <=5.6 % 05/13/2018 [facility] HEMATOLOGY Platelet 184 133 - 450 04/13/2018 [facility] HEMATOLOGY MPV 10.0 7.4 - 10.4 04/13/2018 [facility] HEMATOLOGY RDW 13.7 11.5 - 14.5 04/13/2018 [facility] HEMATOLOGY MCHC 33.2 32.0 - 36.0 04/13/2018 [facility] HEMATOLOGY RBC 4.06 4.70 - 6.10 04/13/2018 [facility] HEMATOLOGY MCH 29.7 27.0 - 31.0 04/13/2018 [facility] HEMATOLOGY MCV 89.2 80.0 - 94.0 04/13/2018 [facility] HEMATOLOGY WBC 11.8 3.7 - 10.4 04/13/2018 [facility] HEMATOLOGY Hct 36.2 42.0 - 54.0 04/13/2018 [facility] HEMATOLOGY Hgb 12.0 14.0 - 18.0 04/13/2018 [facility] HEMATOLOGY INR 0.99 0.85 - 1.17 04/13/2018 [facility] HEMATOLOGY PT 12.9 12.0 - 14.7 04/13/2018 [facility] HEMATOLOGY Segs 40.7 45.0 - 75.0 04/13/2018 [facility] HEMATOLOGY Lymphocytes # 5.8 1.0 - 5.5 04/13/2018 [facility] HEMATOLOGY Neutrophils # 4.8 1.5 - 8.1 04/13/2018 [facility] HEMATOLOGY Eosinophils 2.6 0.0 - 4.0 04/13/2018 [facility] HEMATOLOGY Basophils 0.5 0.0 - 1.0 04/13/2018 [facility] HEMATOLOGY Lymphocytes 49.0 20.0 - 40.0 04/13/2018 [facility] HEMATOLOGY Monocytes 7.2 2.0 - 12.0 04/13/2018 [facility] HEMATOLOGY Eosinophils # 0.3 0.0 - 0.5 04/13/2018 [facility] HEMATOLOGY Basophils # 0.1 0.0 - 0.2 04/13/2018 [facility] HEMATOLOGY Monocytes # 0.8 0.0 - 0.8 04/13/2018 [facility] Pathology Reports No Data Provided for This Section Diagnostic Reports Report Value Date Source Sinus wo contrast CT EXAM: CT SINUS WITHOUT CONTRAST DATE: 05/10/2018 8:31 CHRONOMETER REPAIRER INDICATION: 'R04.0 EPISTAXIS - NOSE BLEED FOR THE PAST 3 MONTHS;LEFT SIDE' COMPARISON: None. TECHNIQUE: Volumetric CT of the sinuses is acquired without contrast. Axial, coronal and sagittal images are provided. IV contrast: None. FINDINGS: NASAL CAVITY: No polyps or masses. SKULL BASE: The bass of the bilateral carotid canals are thinned and deossified along the sphenoid sinus bass. Coronal reformatted images demonstrate intact appearance of the cribriform plates, fovea ethmoidalis and anterior skull base. RIGHT PARANASAL SINUSES: Maxillary sinus is clear. The right maxillary sinus outflow tract is opacified. Frontal sinus is clear with patent frontal sinus drainage pathway. Posterior ethmoid air cells and right sphenoid chamber are clear. The sphenoid ostium and sphenoethmoidal recess are patent. LEFT PARANASAL SINUSES: Maxillary sinus is clear. The ostium, infundibulum, hiatus semilunaris and middle meatus are patent. Anterior ethmoids air cells are clear. Frontal sinus is clear with patent frontal sinus drainage pathway. Posterior ethmoid air cells and right sphenoid chamber are clear. The sphenoid ostium and sphenoethmoidal recess are patent. IMPRESSION: 1. No CT evident nasal cavity polyps or masses. Correlation with direct inspection can be performed in this patient with reported left epistaxis. 2. The bass of the bilateral carotid canals are thinned and deossified along the sphenoid sinuses. 05/10/2018 [facility] Abdomen AP DX Study: Abdomen, 2 views Clinical Indication: Diffuse abdominal pain Comparison: None FINDINGS: 2 views of the abdomen show a nonobstructive bowel gas pattern. No intraperitoneal free air is seen. Surgical clips in the right upper quadrant are seen. There are no suspicious abdominal calcifications. Degenerative disc disease in the lower lumbar spine is seen. IMPRESSION: Nonobstructive bowel gas pattern. SL: [id number] 02/18/2016 [facility] Chest 2 views DX Study: Chest 2 views DX Clinical Indication: COUGH Comparison: None FINDINGS: Cardiac silhouette is normal in size. Mild diffuse interstitial markings are seen seen. No pleural effusion or pneumothorax is seen. Aortic arch calcification is present. The osseous structures are unremarkable. IMPRESSION: Mild diffuse interstitial markings, compatible with mild pulmonary edema or atypical infection. SL: [id number] 02/18/2016 [facility] [place] Abdomen wo IV contrast CT Exam: CT scan of the abdomen without contrast Reason for Exam: Upper abdominal pain Comparison Exam: CT scan abdomen 01/05/2006 Technique: Multiple axial images were obtained of the abdomen. 5 mm slices were acquired after injection of 100 cc Omnipaque IV. In addition, oral contrast was given. Reformatted sagittal and coronal images were obtained. Total exam RZP=758 mGy-cm. Discussion: Visualized portions of the lung bases are unremarkable. Diffuse fatty infiltration seen throughout the liver. The liver is within normal limits for size. The patient is status post cholecystectomy. No biliary duct dilation. Pancreas, spleen, and adrenal glands are within normal limits. Kidneys are unremarkable for technique. No hydronephrosis or hydroureter. No dilated loops of bowel. The appendix is normal. No appreciable lymphadenopathy or free fluid. No hiatal or ventral hernias identified. Advanced degenerative disc disease seen at the L4/L5 level associated with grade 1 anterolisthesis. Impression: 1. No acute abnormalities seen within the abdomen. Diffuse fatty infiltration seen throughout the liver. 07/16/2014 [facility] [place] Knee 3 views EXAM: XR RIGHT KNEE 3 VIEWS DATE: 2013-06-08 1546 hours INDICATION: 719.46 Pain in Joint Involving Lower Leg. COMPARISON: None available TECHNIQUE: AP, lateral and sunrise radiographs of the right knee FINDINGS: No fracture, dislocation or other acute bony abnormality is identified. The wrist moderate to severe patellofemoral compartment osteoarthrosis, with subchondral cystic change and sclerosis most evident at the lateral patellofemoral compartment. There is moderate medial compartment narrowing and small tricompartmental osteophytes. Vascular calcifications are most evident at the calf. 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 06/08/2013 [facility] [place] Consultation Notes No Data Provided for This Section Discharge Summaries No Data Provided for This Section History and Physicals No Data Provided for This Section Vital Signs Vital Sign Value Date Comments Source Systolic (mm Hg) 133 05/16/2018 [facility] Diastolic (mm Hg) 78 05/16/2018 [facility] Systolic (mm Hg) 139 05/16/2018 [facility] Diastolic (mm Hg) 64 05/16/2018 [facility] Systolic (mm Hg) 133 05/16/2018 [facility] Diastolic (mm Hg) 69 05/16/2018 [facility] Respitory Rate 16 05/16/2018 [facility] Respitory Rate 17 05/16/2018 [facility] Respitory Rate 14 05/16/2018 [facility] Heart Rate 79 05/16/2018 [facility] Temperature Oral (F) 98.0 F 05/13/2018 [facility] Heart Rate 64 05/13/2018 [facility] Weight 115.909 05/13/2018 [facility] Height 177.8 cm 05/13/2018 [facility] BMI Calculated 36.67 05/13/2018 [facility] Respitory Rate 18 04/13/2018 [facility] Systolic (mm Hg) 142 04/13/2018 [facility] Diastolic (mm Hg) 81 04/13/2018 [facility] Respitory Rate 18 04/13/2018 [facility] Systolic (mm Hg) 138 04/13/2018 [facility] Diastolic (mm Hg) 85 04/13/2018 [facility] Height 177.8 cm 04/13/2018 [facility] Weight 115.909 04/13/2018 [facility] BMI Calculated 36.67 04/13/2018 [facility] Systolic (mm Hg) 157 04/13/2018 [facility] Diastolic (mm Hg) 77 04/13/2018 [facility] Heart Rate 77 04/13/2018 [facility] Respitory Rate 20 04/13/2018 [facility] Temperature Oral (F) 98.4 F 04/13/2018 [facility] Weight 114.545 01/10/2018 [facility] Temperature Oral (F) 98 F 01/10/2018 [facility] Respitory Rate 18 01/10/2018 [facility] Systolic (mm Hg) 159 01/10/2018 [facility] Diastolic (mm Hg) 79 01/10/2018 [facility] Heart Rate 64 01/10/2018 [facility] Encounters Location Location Details Encounter Type Encounter Number Reason For Visit Attending Provider ADM Date DC Date Status Source [facility] [place] [facility] [id number] Salvador Tsering 06/08/2013 06/09/2013 [facility] Outpatient [id number] Amir Salim 07/16/2014 07/17/2014 [facility] [place] [facility] [id number] Amir Salim 07/16/2014 07/17/2014 [facility] [place] [place] [facility] [id number] Amir Salim 02/18/2016 02/19/2016 [facility] Emergency [id number] Antonia Chester 01/10/2018 01/10/2018 [facility] Emergency [id number] Lulu Castro 04/13/2018 04/13/2018 [facility] [place] Outpt Diag Services [id number] Leland Patino 05/10/2018 05/11/2018 [facility] [id number] Leland Patino 05/16/2018 05/16/2018 [facility] OD [id number] 836.0 - TEAR MED MENISC NEHA GUERRIER Cancel [facility] Procedures Procedure Code Date Perfomer Comments Source CABG x 4 - Coronary artery bypass grafts x 4 [id number] 03/22/2016 [facility] Arthroscopy of knee [id number] [facility] Cholecystectomy [id number] [facility] Epidural steroid injection [id number] [facility] Tonsillectomy [id number] [facility] Assessment and Plan No Data Provided for This Section Plan of Care No Data Provided for This Section Social History Social History Date Source Social History TypeResponse Substance Abuse Use: None. Alcohol Current, Frequency: 1-2 times per year. Smoking Status Former smoker; Exposure to Tobacco Smoke None; Cigarette Smoking Last 365 Days No; Reg Smoking Cessation Counseling No entered on: 05/13/18 05/13/2018 [facility] Social History TypeResponse Smoking Status Former smoker; Type: Cigarettes; Exposure to Tobacco Smoke None; Cigarette Smoking Last 365 Days No; Reg Smoking Cessation Counseling No entered on: 04/13/18 04/13/2018 [facility] [place] No data available for this section 02/19/2016 [facility]en [facility] No data available for this section 07/17/2014 [facility]apien Family History No Data Provided for This Section Advance Directives No Data Provided for This Section Functional Status No Data Provided for This Section
--- OUTSIDE RECORDS SUMMARY | 2018-12-14 08:32 | XMS REPORT | Summary of Care ---
Author Author [facility] - Health Organization [facility] - Health Address Unknown Phone Unavailable Care Team Providers Care Snow Shoveler Name Role Phone Pcp, Patient Does Not Have A PCP Reason for Visit * Reason Comments LAB WORK Encounter Details Care Team Description Date Type Department Víctor Maya [address] [place] [address] [phone] Vtc-Lab Stage 3 chronic kidney disease 12/09/2018 [facility] AT [facility] [address] [place] [phone] Allergies Comments Active Allergy Reactions Severity Noted Date Zolpidem Hallucination 03/30/2016 s documented as of this encounter (statuses as of 12/09/2018) Medications End Date Status Medication Sig Dispensed Refills Start Date Active aspirin 81 mg chewable Take 81 mg by 0 tablet mouth daily. Active furosemide 40 mg tablet Take 40 mg by 0 mouth daily. Active carvedilol 3.125 mg Take 3.125 mg 0 tablet by mouth 2 (two) times daily with meals. Active Insulin [place], Use as 150 Each 3 Disposable, (BD ULTRAFINE directed 7 III MINI PEN) 31 gauge x 3/16" Ndle Active docusate (STOOL SOFTENER) Take 100 mg 0 100 mg capsule by mouth daily. Active MVVLQ-2-CBL-LCY-BZY-YZKJ Take 1 0 OIL ORAL capsule by mouth daily. Active ONETOUCH VERIO strip Use to check 300 Strip 1 blood sugar 8 3X daily. Dx E11.29 Active insulin lispro (HUMALOG inject 18 50 mL 3 KWIKPEN INSULIN) 100 Units under 9 unit/mL pen the skin 3 injectorIndications: Type (three) times 2 diabetes mellitus with daily before complication, with meals. long-term current use of insulin Active LOVAZA, hmaun-2-qotw Take 2 360 capsule 1 ethyl esters, 1 gram capsules by 9 capsule mouth 2 (two) times daily. Active dulaglutide (TRULICITY) inject 1.5 mg 6 mL 3 1.5 mg/0.5 mL under the 9 PnIjIndications: Type 2 skin weekly. diabetes mellitus with diabetic nephropathy, with long-term current use of insulin Active AMLODIPINE 5 mg TAKE ONE 30 tablet 4 tabletIndications: TABLET BY 9 Essential hypertension MOUTH DAILY Active atorvastatin 40 mg Take 1 tablet 90 tablet 3 tabletIndications: Mixed by mouth at 9 hyperlipidemia bedtime. Active HUMALOG KWIKPEN INSULIN INJECT 15 45 mL 1 100 unit/mL UNITS UNDER 9 injectionIndications: THE SKIN Type 2 diabetes mellitus THREE TIMES A with complication, with DAY BEFORE long-term current use of MEALS insulin Active BASAGLAR KWIKPEN U-100 inject 45 45 mL 1 INSULIN 100 unit/mL (3 Units under 9 mL) injection the skin daily. 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) 11/13/2015 Posterior vitreous detachment of both eyes 03/27/2015 Stage 3 chronic kidney disease 12/14/2014 Low vitamin B12 level 12/14/2014 Vitamin D deficiency 12/14/2014 Overview: ICD10 Diagnosis Term Greeter Utility Ptosis of eyelid, left 12/12/2014 Symptomatic posterior vitreous detachment of left eye 10/24/2014 Diabetic macular edema of both eyes 08/15/2014 Obesity 05/02/2013 Overview: ICD10 Diagnosis Term Greeter Utility Type 2 diabetes mellitus with diabetic nephropathy, with long-term current 05/02/2013 use of insulin NPDR (nonproliferative diabetic retinopathy) Right eye 10/05/2012 PDR (proliferative diabetic retinopathy) Left eye 04/27/2012 Essential hypertension, benign 08/26/2011 Mixed hyperlipidemia 08/03/2011 Overview: ICD10 Diagnosis Term Greeter Utility documented as of this encounter (statuses as of 12/09/2018) Resolved Problems Problem Noted Date Resolved Date Senile nuclear sclerosis, right 03/27/2015 03/02/2016 Pseudophakia, left eye 03/27/2015 03/02/2016 Proliferative diabetic retinopathy with macular edema associated with type 08/15/2014 03/02/2016 2 diabetes mellitus Senile nuclear sclerosis, bilateral 08/15/2014 03/02/2016 Diabetic macular edema, left eye 04/27/2012 03/02/2016 Cataracts, both eyes 04/27/2012 02/28/2016 Type II or unspecified type diabetes mellitus without mention of 07/30/2011 05/02/2013 complication, uncontrolled documented as of this encounter (statuses as of 12/09/2018) Immunizations Name Administration Dates Next Due Influenza High Dose 01/04/2018 documented as of this encounter Social History Date Tobacco Use Types Packs/Day Years Used Quit: 08/04/1999 Former Smoker 2.5 40 Smokeless Tobacco: Never Used Drinks/Week oz/Week Comments Alcohol Use Yes Sex Assigned at Date Recorded Not on file Industry Job Start Date Occupation Not on file Not on file Not on file Travel End Travel History Travel Start No recent travel history available. documented as of this encounter Last Filed Vital Signs Not on filedocumented in this encounter Plan of Treatment Care Team Description Date Type Specialty Víctor Maya [address] [place] [address] [phone] 12/12/2018 Office Visit Nephrology Ora Fields MD [address] [place] [address]. [place] [phone] 01/20/2019 Office Visit Endocrinology Diabetes & Metabolism Date/Time Name Type Priority Associated Diagnoses 12/09/2018 10:11 AM CDT BASIC METABOLIC PANEL LAB Routine Stage 3 chronic kidney disease 12/09/2018 10:11 AM CDT PTH LAB Routine Stage 3 chronic kidney disease 12/09/2018 10:11 AM CDT PHOSPHORUS LAB Routine Stage 3 chronic kidney disease 12/09/2018 10:11 AM CDT CBC W/DIFF LAB Routine Stage 3 chronic kidney disease 12/09/2018 10:11 AM CDT CBC WITH DIFFERENTIAL LAB Routine Stage 3 chronic kidney disease 12/09/2018 10:16 AM CDT URINALYSIS LAB Routine Stage 3 chronic kidney disease 12/09/2018 10:16 AM CDT PROTEIN CREAT RATIO URINE LAB Routine Stage 3 chronic kidney RANDOM disease 12/09/2018 10:16 AM CDT MICROALBUMIN URINE LAB Routine Stage 3 chronic kidney disease Health Maintenance Due Date Last Done Comments HEPATITIS C (HCV) SCREEN 1950 DTaP,Tdap,and Td Vaccines 06/05/1967 (1 - Tdap) Zoster Recombinant 1998 Vaccine (SHINGRIX) (1 of 2) Medicare Wellness Visit 2013 PNEUMOCOCCAL VACCINES 65+ 2013 (1 of 2 - PCV13) EYE EXAM 03/03/2017 03/03/2016, 03/02/2016, 01/28/2016, Additional history exists CREATININE (SERUM) 10/05/2018 10/05/2017, 12/31/2015, 06/18/2015, Additional history exists URINE MICROALBUMIN 10/05/2018 10/05/2017, 12/31/2015, 06/18/2015, Additional history exists INFLUENZA VACCINE (#1) 2018 01/04/2018 HgA1C 02/16/2019 08/16/2018, 04/05/2018, 01/04/2018, Additional history exists FOOT EXAM 05/03/2019 05/03/2018, 05/03/2018, 08/19/2017, Additional history exists LDL-C 08/17/2019 08/16/2018, 04/05/2018, 01/04/2018, Additional history exists COLONOSCOPY 10/12/2024 10/12/2014 documented as of this encounter Implants Device Identifier Shelf Expiration Date Model / Serial / Lot Implanted Type Area Manufactur er 10/20/2019 SN60WF 20.5D / [id number] / 0 Lens, Jose #Sn60wf 20.5d - LENS Left: Eye Jose [id number] Implanted: Qty: 1 on 01/30/2015 by [facility] 11/19/2017 SN6AT3 19.5D / [id number] / NA Lens, Jose #Sn6at3 19.5d - LENS Jose [id number] Implanted: Qty: 1 on 02/24/2016 by Bobo Bonds MD at [facility] documented as of this encounter Results Not on filedocumented in this encounter Visit Diagnoses Diagnosis Stage 3 chronic kidney disease documented in this encounter Insurance Type Payer Benefit Subscriber ID Effective Phone Address Plan / Dates Group HMO AETNA AETNA HMO [id number] 2016-P resent Medicare MEDICARE MEDICARE xxxxxxxxxxx 2013-P [phone] & B resent [id number] J[place]NE [place] [id number] documented as of this encounter Advance Directives Patient Plumbing Instructor Explanation Type Date Recorded Advance Directives 08/22/2014 1:06 PM and Living Will Power of Silk Screen Printer Machine 08/22/2014 1:06 PM
--- OUTSIDE RECORDS SUMMARY | 2018-12-14 08:32 | XMS REPORT | Summary of Care ---
Author Author [facility] - Health Organization [facility] - Health Address Unknown Phone Unavailable Care Team Providers Care Space Studies Faculty Member Name Role Phone Pcp, Patient Does Not Have A PCP Encounter Details Care Team Description Date Type Department Doctor Unassigned, [place] [address] [place] [address] 12/09/2018 Orders Only [facility] [address] [place] [address] Allergies Comments Active Allergy Reactions Severity Noted [...] (two) times daily with meals. Active Insulin [place], Use as 150 Each 3 Disposable, (BD ULTRAFINE directed 7 III MINI PEN) 31 gauge x 3/16" Ndle Active docusate (STOOL SOFTENER) Take 100 mg 0 100 mg capsule by mouth daily. 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) 11/13/2015 Posterior vitreous detachment of both eyes 03/27/2015 Stage 3 chronic kidney disease 12/14/2014 Low vitamin B12 level 12/14/2014 Vitamin D deficiency 12/14/2014 Overview: ICD10 Diagnosis Term Interior Decorator Paperhanging Utility Ptosis of eyelid, left 12/12/2014 Symptomatic posterior vitreous detachment of left eye 10/24/2014 Diabetic macular edema of both eyes 08/15/2014 Obesity 05/02/2013 Overview: ICD10 Diagnosis Term Interior Decorator Paperhanging Utility Type 2 diabetes mellitus with diabetic nephropathy, with long-term current 05/02/2013 use of insulin NPDR (nonproliferative diabetic retinopathy) Right eye 10/05/2012 PDR (proliferative diabetic retinopathy) Left eye 04/27/2012 Essential hypertension, benign 08/26/2011 Mixed hyperlipidemia 08/03/2011 Overview: ICD10 Diagnosis Term Interior Decorator Paperhanging Utility documented as of this encounter (statuses [...] Team Description Date Type Specialty Víctor Maya [address] [place] [address] [phone] 12/12/2018 Office Visit Nephrology Ora Fields MD [address] [place] [address]. [place] [phone] 01/20/2019 Office Visit Endocrinology Diabetes & Metabolism Health Maintenance Due Date Last Done Comments [...] Area Manufactur er 10/20/2019 SN60WF 20.5D / [id number] / 0 Lens, Jose #Sn60wf 20.5d - LENS Left: Eye Jose [id number] Implanted: Qty: 1 on 01/30/2015 by Bobo Bonds MD at [facility] 11/19/2017 SN6AT3 19.5D / [id number] / NA Lens, Jose #Sn6at3 19.5d - LENS Jose [id number] Implanted: Qty: 1 on 02/24/2016 by Bobo Bonds MD at [facility] documented as of this encounter Procedures Comments Procedure Name Priority Date/Time Associated Diagnosis NO SHOW OR MISSED Routine 12/09/2018 APPOINTMENT POLICY 9:50 AM CDT ACKNOWLEDGEMENT documented in this encounter Results Not on filedocumented in this encounter Insurance Type Payer Benefit Subscriber ID Effective Phone Address Plan / Dates Group Medicare MEDICARE MEDICARE xxxxxxxxxxx 2013-P [phone] [address] & B resent [id number] J[place] [id number] O AETNA AETNA O [id number] 2016-P resent documented as of this encounter Advance Directives Patient Materials Planning Analyst Explanation Type Date Recorded Advance Directives 08/22/2014 1:06 PM and Living Will Power of Uniformer 08/22/2014 1:06 PM
--- OUTSIDE RECORDS SUMMARY | 2018-12-14 08:32 | XMS REPORT | Summary of Care ---
Author Author [facility] - Health Organization [facility] - [employer] Address Unknown Phone Unavailable Care Team Providers Care Design Specialist Name Role Phone Pcp, Patient Does Not Have A PCP Reason for Referral * (Routine) Referred By Contact Referred To Contact Status Reason Specialty Diagnoses / [place] [address] [place] [phone] New Request Nephrology Diagnoses Chronic kidney disease (CKD) stage G3b/A3, moderately decreased glomerular filtration rate (GFR) between 30-44 mL/min/1.73 square meter and albuminuria creatinine ratio greater than 300 mg/g P rocedures CONSULT/REFERRAL NEPHROLOGY Reason for Visit * Reason Comments Referral/consult Encounter Details Care Team Description Date Type Department Ora Fields MD [address] [place] [phone] Referral/consult 11/22/2018 Telephone [facility] [address] [place] [phone] Allergies Comments Active Allergy Reactions Severity Noted Date Zolpidem Hallucination 03/30/2016 s documented as of this encounter (statuses as of 11/22/2018) Medications End Date Status Medication Sig Dispensed Refills Start Date Active aspirin 81 mg chewable Take 81 mg by 0 tablet mouth daily. Active furosemide 40 mg tablet Take 40 mg by 0 mouth daily. Active carvedilol 3.125 mg Take 3.125 mg 0 tablet by mouth 2 (two) times daily with meals. Active Insulin [place], Use as 150 Each 3 Disposable, (BD ULTRAFINE directed 7 III MINI PEN) 31 gauge x 3/16" Ndle Active docusate (STOOL SOFTENER) Take 100 mg 0 100 mg capsule by mouth daily. 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) 11/13/2015 Posterior vitreous detachment of both eyes 03/27/2015 Stage 3 chronic kidney disease 12/14/2014 Low vitamin B12 level 12/14/2014 Vitamin D deficiency 12/14/2014 Overview: ICD10 Diagnosis Term Mri Assistant Utility Ptosis of eyelid, left 12/12/2014 Symptomatic posterior vitreous detachment of left eye 10/24/2014 Diabetic macular edema of both eyes 08/15/2014 Obesity 05/02/2013 Overview: ICD10 Diagnosis Term Mri Assistant Utility Type 2 diabetes mellitus with diabetic nephropathy, with long-term current 05/02/2013 use of insulin NPDR (nonproliferative diabetic retinopathy) Right eye 10/05/2012 PDR (proliferative diabetic retinopathy) Left eye 04/27/2012 Essential hypertension, benign 08/26/2011 Mixed hyperlipidemia 08/03/2011 Overview: ICD10 Diagnosis Term Mri Assistant Utility documented as of this encounter (statuses as of 11/22/2018) Resolved Problems Problem Noted Date Resolved Date [...] as of this encounter (statuses as of 11/22/2018) Immunizations Name Administration Dates Next Due Influenza [...] Treatment Care Team Description Date Type Specialty Ora Fields MD [address] [place] [phone] 01/20/2019 Office Visit Endocrinology Diabetes & Metabolism [...] Area Manufactur er 10/20/2019 SN60WF 20.5D / [id number] / 0 Lens, Jose #Sn60wf 20.5d - LENS Left: Eye Jose [id number] Implanted: Qty: 1 on 01/30/2015 by Bobo Bonds MD at [facility] 11/19/2017 SN6AT3 19.5D / [id number] / NA Lens, Jose #Sn6at3 19.5d - LENS Jose [id number] Implanted: Qty: 1 on 02/24/2016 by Bobo Bonds MD at [facility] documented as of this encounter Results Not on filedocumented in this encounter Visit Diagnoses Diagnosis Chronic kidney disease (CKD) stage G3b/A3, moderately decreased glomerular filtration rate (GFR) between 30-44 mL/min/1.73 square meter and albuminuria creatinine ratio greater than 300 mg/g - Primary documented in this encounter Insurance Type Payer Benefit Subscriber ID Effective Phone Address Plan / Dates Group Medicare MEDICARE MEDICARE xxxxxxxxxxx 2013-P [phone] & B resent [id number] [place] [id number] [facility] REINA HUANG [facility] [id number] 2016-P resent documented as of this encounter Advance Directives Patient Division Sales Manager Explanation Type Date Recorded Advance Directives 08/22/2014 1:06 PM and Living Will Power of Coffee Maker 08/22/2014 1:06 PM
--- OUTSIDE RECORDS SUMMARY | 2018-12-14 08:32 | XMS REPORT | Summary of Care ---
Author Author [facility] - Health Organization [facility] - Health Address Unknown Phone Unavailable Care Team Providers Care Nissan Sales Consultant Name Role Phone Pcp, Patient Does Not Have A PCP Reason for Visit * Reason Comments Pre-Visit Planning Encounter Details Care Team Description Date Type Department Víctor Myaa [address] [place] [address] [phone] Pre-Visit Planning 12/07/2018 Telephone [facility] [address] [place] [phone] Allergies Comments Active Allergy Reactions Severity Noted Date Zolpidem Hallucination 03/30/2016 s documented as of this encounter (statuses as of 12/07/2018) Medications End Date Status Medication Sig Dispensed Refills Start Date Active aspirin 81 mg chewable Take 81 mg by 0 tablet mouth daily. Active furosemide 40 mg tablet Take 40 mg by 0 mouth daily. Active carvedilol 3.125 mg Take 3.125 mg 0 tablet by mouth 2 (two) times daily with meals. Active Insulin [place], Use as 150 Each 3 Disposable, (BD ULTRAFINE directed 7 III MINI PEN) 31 gauge x 3/16" Ndle Active docusate (STOOL SOFTENER) Take 100 mg 0 100 mg capsule by mouth daily. 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) 11/13/2015 Posterior vitreous detachment of both eyes 03/27/2015 Stage 3 chronic kidney disease 12/14/2014 Low vitamin B12 level 12/14/2014 Vitamin D deficiency 12/14/2014 Overview: ICD10 Diagnosis Term Conduit Helper Utility Ptosis of eyelid, left 12/12/2014 Symptomatic posterior vitreous detachment of left eye 10/24/2014 Diabetic macular edema of both eyes 08/15/2014 Obesity 05/02/2013 Overview: ICD10 Diagnosis Term Conduit Helper Utility Type 2 diabetes mellitus with diabetic nephropathy, with long-term current 05/02/2013 use of insulin NPDR (nonproliferative diabetic retinopathy) Right eye 10/05/2012 PDR (proliferative diabetic retinopathy) Left eye 04/27/2012 Essential hypertension, benign 08/26/2011 Mixed hyperlipidemia 08/03/2011 Overview: ICD10 Diagnosis Term Conduit Helper Utility documented as of this encounter (statuses as of 12/07/2018) Resolved Problems Problem Noted Date Resolved Date [...] as of this encounter (statuses as of 12/07/2018) Immunizations Name Administration Dates Next Due Influenza [...] Team Description Date Type Specialty Víctor Maya [address] [place] [address] [phone] 12/12/2018 Office Visit Nephrology Ora Fields MD [address] [place] [address]. [place] [phone] 01/20/2019 Office Visit Endocrinology Diabetes [...] Area Manufactur er 10/20/2019 SN60WF 20.5D / [id number] / 0 Lens, Jose #Sn60wf 20.5d - LENS Left: Eye Jose [id number] Implanted: Qty: 1 on 01/30/2015 by Bobo Bonds MD at [facility] 11/19/2017 SN6AT3 19.5D / [id number] / NA Lens, Jose #Sn6at3 19.5d - LENS Jose [id number] Implanted: Qty: 1 on 02/24/2016 by Bobo Bonds MD at [facility] documented as of this encounter Results Not on filedocumented in this encounter Insurance Type Payer Benefit Subscriber ID Effective Phone Address Plan / Dates Group Medicare MEDICARE MEDICARE xxxxxxxxxxx 2013-P [phone] [address] & B resent [id number] J[place] [id number] O AETNA AETNA O [id number] 2016-P resent documented as of this encounter Advance Directives Patient Apiarist Explanation Type Date Recorded Advance Directives 08/22/2014 1:06 PM and Living Will Power of Platen Press Feeder 08/22/2014 1:06 PM
--- OUTSIDE RECORDS SUMMARY | 2018-12-14 08:32 | XMS REPORT | Summary of Care ---
Author Author [facility] Organization [facility] Address Unknown Phone Unavailable Encounter [facility] [place](FIN) [id number] Date(s): 04/13/18 - 04/13/18 [facility] [address] [place] [address]- [phone] Encounter Diagnosis Epistaxis (Discharge Diagnosis) - 04/13/18 Discharge Disposition: [...] 2:43 AM) Body Mass Index Problem List No data available for this section Allergies, Adverse Reactions, Alerts Substance Reaction Severity Status NKDA Active Medications Afrin 0.05% nasal spray 2 spray, Route: NASAL, ONCE, Drug form: DEEDEE, Start date: 04/13/18 3:54:00 CLASS A LINEMAN, Stop date: 04/13/18 3:54:00 CLASS A LINEMAN Notes: (Same as: Yazmin) Start Date: 04/13/18 Stop Date: 04/13/18 Status: Completed Results HEMATOLOGY Most recent to 1 oldest [Reference Range]: WBC [3.7-10.4 K/CMM] 11.8 K/CMM *HI* (04/13/18 4:36 AM) RBC [4.70-6.10 4.06 M/CMM M/CMM] *LOW* (04/13/18 4:36 AM) Hgb [14.0-18.0 g/dL] 12.0 g/dL *LOW* (04/13/18 4:36 AM) Hct [42.0-54.0 %] 36.2 % *LOW* (04/13/18 4:36 AM) MCV [80.0-94.0 fL] 89.2 fL (04/13/18 4:36 AM) MCH [27.0-31.0 pg] 29.7 pg (04/13/18 4:36 AM) MCHC [32.0-36.0 33.2 g/dL g/dL] (04/13/18 4:36 AM) RDW [11.5-14.5 %] 13.7 % (04/13/18 4:36 AM) MPV [7.4-10.4 fL] 10.0 fL (04/13/18 4:36 AM) Platelet [133-450 184 K/CMM K/CMM] (04/13/18 4:36 AM) Segs [45.0-75.0 %] 40.7 % *LOW* (04/13/18 4:36 AM) Lymphocytes 49.0 % [20.0-40.0 %] *HI* (04/13/18 4:36 AM) Monocytes [2.0-12.0 7.2 % %] (04/13/18 4:36 AM) Eosinophils [0.0-4.0 2.6 % %] (04/13/18 4:36 AM) Basophils [0.0-1.0 0.5 % %] (04/13/18 4:36 AM) Neutrophils # 4.8 K/CMM [1.5-8.1 K/CMM] (04/13/18 4:36 AM) Lymphocytes # 5.8 K/CMM [1.0-5.5 K/CMM] *HI* (04/13/18 4:36 AM) Monocytes # [0.0-0.8 0.8 K/CMM K/CMM] (04/13/18 4:36 AM) Eosinophils # 0.3 K/CMM [0.0-0.5 K/CMM] (04/13/18 4:36 AM) Basophils # [0.0-0.2 0.1 K/CMM K/CMM] (04/13/18 4:36 AM) PT [12.0-14.7 12.9 seconds seconds] (04/13/18 4:36 AM) INR [0.85-1.17] 0.99 (04/13/18 4:36 AM) Immunizations No data available [...]
--- OUTSIDE RECORDS SUMMARY | 2018-12-14 08:32 | XMS REPORT | Summary of Care ---
Author Author [facility] Organization [facility] Address Unknown Phone Unavailable Care Team Providers Care Projector Operator Name Role Phone Pcp, Patient Does Not Have A PCP Reason for Visit * Reason Comments Pre-Visit Planning labs Encounter Details Care Team Description Date Type Department Víctor Maya [address] [place] [id number] [phone] Pre-Visit Planning (labs) 12/05/2018 [facility]phone [facility] [address] [place] [phone] Allergies Comments Active Allergy Reactions Severity Noted Date Zolpidem Hallucination 03/30/2016 s documented as of this encounter (statuses as of 12/05/2018) Medications End Date Status Medication Sig Dispensed Refills Start Date Active aspirin 81 mg chewable Take 81 mg by 0 tablet mouth daily. Active furosemide 40 mg tablet Take 40 mg by 0 mouth daily. Active carvedilol 3.125 mg Take 3.125 mg 0 tablet by mouth 2 (two) times daily with meals. Active Insulin [place], Use as 150 Each 3 Disposable, (BD ULTRAFINE directed 7 III MINI PEN) 31 gauge x 3/16" Ndle Active docusate (STOOL SOFTENER) Take 100 mg 0 100 mg capsule by mouth daily. 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) 11/13/2015 Posterior vitreous detachment of both eyes 03/27/2015 Stage 3 chronic kidney disease 12/14/2014 Low vitamin B12 level 12/14/2014 Vitamin D deficiency 12/14/2014 Overview: ICD10 Diagnosis Term 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 Utility Ptosis of eyelid, left 12/12/2014 Symptomatic posterior vitreous detachment of left eye 10/24/2014 Diabetic macular edema of both eyes 08/15/2014 Obesity 05/02/2013 Overview: ICD10 Diagnosis Term Menagerie Caretaker Utility Type 2 diabetes mellitus with diabetic nephropathy, with long-term current 05/02/2013 use of insulin NPDR (nonproliferative diabetic retinopathy) Right eye 10/05/2012 PDR (proliferative diabetic retinopathy) Left eye 04/27/2012 Essential hypertension, benign 08/26/2011 Mixed hyperlipidemia 08/03/2011 Overview: ICD10 Diagnosis Term Menagerie Caretaker Utility documented as of this encounter (statuses as of 12/05/2018) Resolved Problems Problem Noted Date Resolved Date [...] as of this encounter (statuses as of 12/05/2018) Immunizations Name Administration Dates Next Due Influenza [...] Team Description Date Type Specialty Víctor Maya [address] [place] [id number] [phone] 12/12/2018 Office Visit Nephrology Ora Fields MD [address] [place] [address]. [place] [phone] 01/20/2019 Office Visit Endocrinology Diabetes & Metabolism Order Schedule Name Type Priority Associated Diagnoses Expected: 12/05/2018, Expires: 03/06/2019 BASIC METABOLIC PANEL LAB Routine Stage 3 chronic kidney disease Expected: 12/05/2018, Expires: 03/06/2019 PTH LAB Routine Stage 3 chronic kidney disease Expected: 12/05/2018, Expires: 03/06/2019 PHOSPHORUS LAB Routine Stage 3 chronic kidney disease Expected: 12/05/2018, Expires: 03/06/2019 CBC W/DIFF LAB Routine Stage 3 chronic kidney disease Expected: 12/05/2018, Expires: 03/06/2019 URINALYSIS LAB Routine Stage 3 chronic kidney disease Expected: 12/05/2018, Expires: 03/06/2019 PROTEIN CREAT RATIO URINE LAB Routine Stage 3 chronic kidney RANDOM disease Expected: 12/05/2018, Expires: 03/06/2019 MICROALBUMIN URINE LAB Routine Stage 3 chronic [...] Area Manufactur er 10/20/2019 SN60WF 20.5D / [id number] / 0 Lens, Jose #[id number] 20.5d - LENS Left: Eye Jose [id number] Implanted: Qty: 1 on 01/30/2015 by Bobo Bonds MD at [facility] 11/19/2017 [id number] 19.5D / [id number] / NA Lens, Jose #[id number] 19.5d - LENS Jose [id number] Implanted: Qty: 1 on 02/24/2016 by Bobo Bonds MD at [facility] documented as of this encounter Results Not on filedocumented in this encounter Visit Diagnoses Diagnosis Stage 3 chronic kidney disease - Primary documented in this encounter Insurance Type Payer Benefit Subscriber ID Effective Phone Address Plan / Dates Group Medicare MEDICARE MEDICARE xxxxxxxxxxx 2013-P [phone] [address] & B resent [id number] JAYNE STOVER [id number] O [employer] [facility] [id number] 2016-P resent documented as of this encounter Advance Directives Patient Teaching Young Explanation Type Date Recorded Advance Directives 08/22/2014 1:06 PM and Living Will Power of Nurse Manager 08/22/2014 1:06 PM
--- OUTSIDE RECORDS SUMMARY | 2018-12-14 08:32 | XMS REPORT | Summary of Care ---
Author Author [facility] Organization [facility] Address Unknown Phone Unavailable Encounter HQ Brianna_lisseth(FIN) [id number] Date(s): 01/10/18 - 01/10/18 [facility] [address] [place] [address]- Discharge Disposition: Home or Self Care Attending Physician: Antonia Chester MD Vital Signs Most recent to 1 oldest [Reference Range]: Temperature Oral 98 DegF [96.4-99.1 DegF] (01/10/18 5:53 AM) Blood Pressure 159/79 mmHg [90-140/60-90 mmHg] *HI* (01/10/18 5:53 AM) Respiratory Rate 18 BRMIN [14-20 BRMIN] (01/10/18 5:53 AM) Peripheral Pulse 64 bpm Rate [60-100 bpm] (01/10/18 5:53 AM) Weight 114.545 kg (01/10/18 5:53 AM) Problem List Condition Effective Dates Status Health Status Informant CAD (coronary artery Active disease)(Confirmed) Diabetes Active mellitus(Confirmed) Hypertension(Confirm Active ed) Obesity(Confirmed) Active Allergies, Adverse Reactions, Alerts No Known Medication Allergies Medications No data available for this section [...]
--- OUTSIDE RECORDS SUMMARY | 2018-12-14 08:32 | XMS REPORT ---
Author Author [facility] Address Unknown Phone Unavailable Care Team Providers Care Electrician Substation Supervisor Name Role Phone NEHA GUERRIER Unavailable Unavailable Problems This patient has no known problems. Allergies, Adverse Reactions, Alerts This patient has no known allergies or adverse reactions. Medications This patient has no known medications. Results Test Description Test Time Test Comments Text Results Atomic Results Result Comments CHEST 2 VIEWS 2018-12-12 14:24:00 [place] [address] Patient Name: BART MORALES MR #: [id number] : 1950 Age/Sex: 68/M Req #: [id number] [facility] Physician: Ordered by: NEHA GUERRIER MD Report #: [id number] Location: OR Room/Bed: Procedure: [id number] DX/CHEST 2 VIEWS Exam Date: 12/12/18 Exam Time: 1400 REPORT STATUS: Signed EXAMINATION: CHEST 2 VIEWS INDICATION: Pre-operative COMPARISON: None FINDINGS: LINES/TUBES:None LUNGS:The lungs are well inflated. No focal consolidation or pulmonary edema. PLEURA:No pleural effusion or pneumothorax. MEDIASTINUM:The cardiomediastinal silhouette is enlarged. Postoperative changes of prior CABG. Atherosclerotic calcifications of the thoracic aorta. BONES/SOFT TISSUES:No acute osseous injury. Sternotomy wires in place with fractures of the first and sixth sternotomy wires. ABDOMEN:No free air under the diaphragm. IMPRESSION: No focal pneumonia or pulmonary edema. Cardiomegaly and postoperative findings of prior CABG. Signed by: Carlos Zamarripa MD on 12/12/2018 2:26 PM Dictated By: CARLOS ZAMARRIPA MD 25 Transcribed By: DUANE on 12/12/181425 COPY TO: NEHA GUERRIER MD MRI KNEE LEFT WO 2018-12-09 14:30:00 [place] [address] Patient Name: BART MORALES MR #: [id number] : 1950 Age/Sex: 68/M Req #: [id number] Physician: Ordered by: NEHA GUERRIER MD Report #: [id number] Location: MRI Room/Bed: Procedure: [id number] MRI/MRI KNEE LEFT WO Exam Date: Exam Time: REPORT STATUS: Signed TECHNIQUE: Magnetic resonance imaging of the LEFT KNEE was performed WITHOUT injected contrast. HISTORY: Left knee pain COMPARISON: None available. FINDINGS: LIGAMENTS AND TENDONS: ACL: Intact PCL: Intact Collateral ligaments: Defect within the medial collateral ligament axial image 20 with surrounding edema. (Additionally this could be remote injury with overlying edema due to the meniscal tear) Iliotibial band: Unremarkable Popliteal tendon: Intact Extensor mechanism: Fragmentation of the tibial tuberosity with patellar tendinosis JOINT: Menisci: Medial: Complex tearing of the body and posterior horn with dominant radial component of the body Lateral: Intact Articular Cartilage: Medial Compartment: Diffuse partial- thickness cartilage loss Lateral Compartment: Diffuse partial- thickness cartilage loss Patellofemoral Compartment: Diffuse high- grade cartilage loss with areas of the facet. Joint Fluid: Moderate joint effusion. BONE: No focal or infiltrative bone marrow replacing abnormality. No acute fracture. SOFT TISSUES: Otherwise, unremarkable. IMPRESSION: Medial meniscus complex tear with dominant radial component to the body. Tricompartment cartilage loss, patellofemoral compartment predominant. Medial collateral ligament possible partial tear as above. Signed by: Dr. Blas Hastings M.D. on 12/09/2018 2:43 PM Dictated By: BLAS HASTINGS MD 1443 Transcribed By: DUANE on 12/09/18 1443 COPY TO: NEHA GUERRIER MD
[2018-12-14 14:45] VITALS: BP 106/68
--- NOTE | 2018-12-16 00:37 | Operative Report ---
DATE OF PROCEDURE: 12/14/2018 SURGEON: Castillo Betts MD PREOPERATIVE DIAGNOSES: Left knee medial meniscus tear, left knee degenerative joint disease. POSTOPERATIVE DIAGNOSES: Left knee medial meniscus tear, left knee degenerative joint disease. OPERATION/PROCEDURE PERFORMED: The patient underwent left knee examination under anesthesia, left knee arthroscopy, left knee partial medial meniscectomy, left knee chondroplasty of the patella, the trochlea, the medial femoral condyle, the medial tibial plateau, the lateral femoral condyle, and lateral tibial plateau. ACCOUNTING OFFICER: None. ANESTHESIA: General endotracheal intubation anesthesia. IV FLUIDS: As per anesthesia record. BRIEF DESCRIPTION OF THE PATIENT'S OPERATIVE PROCEDURE: Mr. Cortés was taken to the operating room, placed in supine position on the operating table. Following induction of general anesthesia as well as endotracheal intubation, the patient's left lower extremity was examined under anesthesia. He was found to have a mild effusion with the knee joint, but otherwise ligamentously stable knee. The patient's lower extremity was prepped and draped in standard surgical fashion. A two-port technique was used to provide this patient arthroscopic evaluation of the knee joint. Examination of suprapatellar pouch and medial and lateral gutters found no evidence of loose bodies. There was, however, evidence of chondromalacia of the patellar and trochlear surfaces. The scope was advanced to the medial compartment. Examination of the medial compartment demonstrated a torn medial meniscus. There was a portion of the medial meniscus that was extruded into the medial gutter. Combination of biting forceps and a motorized shaver were used to resect the torn portion of meniscus. There was also chondromalacia of the articulating surfaces. A chondroplasty of the medial femoral condyle and medial tibial plateau were performed at this time. Scope was then advanced to the intercondylar notch. Anterior cruciate ligament was identified and found to be intact. Scope was advanced to the lateral compartment and there was chondromalacia of the articulating surfaces. A chondroplasty of each of these surfaces was performed at this time. The scope was then placed in suprapatellar pouch. A chondroplasty of patellar trochlear was performed. The knee was deflated with sterile normal saline. Each of the portal sites were closed using 4-0 nylon suture. The portal sites as well as knee self itself were injected with 0.5% Marcaine with epinephrine. Sterile dressings were applied. The patient was then awakened and taken to postanesthesia care unit in stable condition. MD AVA Harris/WILD /[id number]
== END | disposition home or self-care (01) ==
LOC: OR 08:20
PROVIDERS: ATTEND Specialist
DX: S83.222A Peripheral tear of medial meniscus, current injury, left knee, initial encounter (principal); M25.462 Effusion, left knee; M94.262 Chondromalacia, left knee; M17.0 Bilateral primary osteoarthritis of knee; I25.2 Old myocardial infarction; I13.0 Hypertensive heart and chronic kidney disease with heart failure and stage 1 through stage 4 chronic kidney disease, or unspecified chronic kidney disease; I50.9 Heart failure, unspecified; N18.9 Chronic kidney disease, unspecified; E11.22 Type 2 diabetes mellitus with diabetic chronic kidney disease; Z95.1 Presence of aortocoronary bypass graft; Z79.82 Long term (current) use of aspirin; Z79.4 Long term (current) use of insulin; E78.00 Pure hypercholesterolemia, unspecified; Z01.810 Encounter for preprocedural cardiovascular examination; Z01.812 Encounter for preprocedural laboratory examination; Z01.811 Encounter for preprocedural respiratory examination
CPT/HCPCS: 29881; 36415 ×2; 71046; 80048; 82948; 85025; 93005; J0131; J0690; J1100; J2001; J2405; J2704; J3010